=== PATIENT | male | born 1995 | race Hispanic/Latino ===

== ENCOUNTER 2018-10-28 17:30 | Emergency (ER) | payer OTHER | END 2018-10-28 19:09 | disposition home or self-care (01) | LOC: EDH 17:30 | DX: S29.8XXA Other specified injuries of thorax, initial encounter (principal); J45.909 Unspecified asthma, uncomplicated; Z72.0 Tobacco use; V59.40XA Driver of pick-up truck or van injured in collision with unspecified motor vehicles in traffic accident, initial encounter; Y93.89 Activity, other specified; Y92.410 Unspecified street and highway as the place of occurrence of the external cause; Y99.8 Other external cause status | CPT/HCPCS: 72072 ==